=== PATIENT | female | born 2000 | race Two or more races ===

== ENCOUNTER 2022-06-17 02:14 | Emergency (ER) | payer BC ==
[~2022-06-17] VITALS: Ht 152.4 cm; Wt 77.1 kg
--- NOTE | 2022-06-17 02:28 | NUR ---
Dr. Diaz in room for SHANI.
--- NOTE | 2022-06-17 02:28 | NUR ---
pt ambulated to room 5 states she was drinking willie night and she fell and she thinks she has a concussion and wants to be seen by the er md.
[2022-06-17 03:10] LABS: HEMATOCRIT 39.4 % (31.2-41.9); MEAN CORPUSCULAR HEMOGLOBIN 31.4 uug (24.7-32.8); MEAN CORPUSCULAR VOLUME 89.5 fL (75.5-95.3); PLATELET COUNT (AUTO) 220 K/uL (179-408)
[2022-06-17 03:15] LABS: BILIRUBIN,DIRECT 0.1 mg/dL (0.0-0.2); BILIRUBIN,TOTAL 0.2 mg/dL (0.2-1.0); CREATININE 0.6 mg/dL (0.6-1.3); POTASSIUM 3.5 mmol/L (3.5-5.1); TOTAL PROTEIN, SERUM 7.3 g/dL (6.4-8.2)
[2022-06-17 03:34] LABS: *BILIRUBIN,URIN NEGATIVE (NEGATIVE); *BLOOD, URINE 1+ (NEGATIVE); *CLARITY,URINE CLEAR (CLEAR); *COLOR,URINE YELLOW (YELLOW); *KETONES,URINE NEGATIVE (NEGATIVE); *UROBILINOGEN,URINE 0.2 E.U./dl (NORMAL); LEUKOCYTE ESTERASE ,URINE NEGATIVE (NEGATIVE); NITRITE, URINE NEGATIVE (NEGATIVE); PH,URINE 6.5 (5.0-8.0); UGLUCOSE NEGATIVE (NEGATIVE)
[2022-06-17] MEDS ORDERED: IBUPROFEN 800 MG TABLET ONE (03:56)
[2022-06-17] MEDS ORDERED: NAPR500T6 PO (04:00)
[2022-06-17] MEDS ORDERED: IBUPROFEN 800 MG TABLET PO ONE (04:00)
[2022-06-17 04:07] VITALS: BP 130/80
--- NOTE | 2022-06-17 04:07 | NUR ---
Patient discharged to home in stable condition. Written and verbal after care instructions given. Patient verbalizes understanding of instructions. Stressed follow up or return to ER for worsening s/s.
[2022-06-17 06:33] LABS: RBC,URINE 0-3 /HPF (0-3); WBC,URINE NONE SEEN /HPF (0-3)
[2022-06-17 06:34] LABS: BACTERIA,URINE NONE SEEN /HPF (NONE SEEN); SQUAMOUS EPITHELIAL CELL,UR FEW /HPF (NONE SEEN)
== END 2022-06-17 04:08 | disposition home or self-care (01) ==
LOC: ER 02:37
DX: S06.0X0A Concussion without loss of consciousness, initial encounter (principal); S70.12XA Contusion of left thigh, initial encounter; R40.2142 Coma scale, eyes open, spontaneous, at arrival to emergency department; R40.2362 Coma scale, best motor response, obeys commands, at arrival to emergency department; R40.2252 Coma scale, best verbal response, oriented, at arrival to emergency department; W17.89XA Other fall from one level to another, initial encounter; Y93.E8 Activity, other personal hygiene; Y92.89 Other specified places as the place of occurrence of the external cause
CPT/HCPCS: 36415; 85025; A4663